=== PATIENT | female | born 1940 | race Caucasian/White ===

== ENCOUNTER 2016-09-06 23:22 | Emergency (ER) | payer MEDICARE, BC ==
[2016-09-07] MEDS: HYDROMORPHONE HCL 1 MG/ML CPJ IM ONE (01:18)
[2016-09-07] MEDS: PROMETHAZINE HCL 25 MG/ML VIAL IM ONE (01:18)
[2016-09-07] MEDS: KETOROLAC 30 MG/ML VIAL IM ONE (01:18)
--- NOTE | 2016-09-07 01:56 | Emergency Department Record ---
History of Present Illness - General Chief complaint: Lower Extremity Pain Stated complaint: RESTLESS LEGS Time Seen by Provider: 09/07/16 00:29 Source: Patient Mode of Arrival: Ambulatory Limitations: No limitations - History of Present Illness Initial comments: pt fell on [place] on her buttocks and has continued pain in her back, buttocks and going down her legs. she has no numbess, no bowel or bladder problems. pt is on chemo for colonca w mets. her oncologist told her to get xrays. the pain was keeping her awake tonight Onset/Timin -: Days(s) Location: Bilateral, Lower Leg Severity scale (1-10): 8 Quality: Aching Consistency: Constant Improves with: Immobilization Worsens with: Exertion, Palpation Associated Symptoms: Denies other symptoms - Related Data Home Medications Medication Instructions Recorded Confirmed Last Taken Cyclobenzaprine HCl [Flexeril] 10 mg PO Q6H PRN 02/22/14 09/07/16 09/06/16 Ipratropium/Albuterol [Duoneb] 3 ml IH Q8H PRN 02/22/14 09/07/16 09/06/16 Morphine Sulfate [Morphine Sulfate 30 mg PO BID PRN 02/22/14 09/07/16 09/06/16 ER] Omeprazole [Prilosec] 20 mg PO DAILY 02/22/14 09/07/16 09/07/16 Paroxetine HCl [Paxil] 40 mg PO QHS 02/22/14 09/07/16 09/06/16 Promethazine HCl [Phenergan] 25 mg PO Q6H PRN 02/22/14 09/07/16 09/06/16 Morphine Sulfate 15 mg PO Q4H PRN 04/07/15 09/07/16 09/07/16 Multivitamin/Iron/Folic Acid 1 tab PO DAILY 06/06/15 09/07/16 09/06/16 [Centrum] Ketorolac Tromethamine 10 mg PO BID PRN 11/12/15 09/07/16 09/06/16 Lorazepam [Ativan] 0.5 mg PO Q8H 11/21/15 09/07/16 09/07/16 Ondansetron [Zofran Odt] 4 mg PO Q8H 03/31/16 09/07/16 09/06/16 Previous Rx's Medication Instructions Recorded Ketorolac Tromethamine 10 mg PO QID #20 tablet 03/31/16 Ketorolac Tromethamine 10 mg PO QID #20 tablet 03/31/16 Triamcinolone Acet Cream [Kenalog 1 apply TP BID #30 tube 07/06/16 Cream] Allergies Allergy/AdvReac Type Severity Reaction Status Date / Time aspirin Allergy Unknown HYPERSENSIT Verified 07/06/16 15:51 IVITY codeine Allergy Unknown NAUSEA AND Verified 07/06/16 15:51 VOMITING doxycycline [DOXYCYCLINE] Allergy Unknown DIARRHEA Verified 07/06/16 15:51 iodine [IODINE] Allergy Unknown SKIN Verified 07/06/16 15:51 IRRITATION [id number] Reductase Allergy Unknown ABDOMINAL Verified 07/06/16 15:51 Inhibitor PAIN Sulfa (Sulfonamide Allergy Unknown DIARRHEA Verified 07/06/16 15:51 Antibiotics) acetaminophen [From Percocet] Allergy DIARRHEA Verified 07/06/16 15:51 azithromycin [From Zithromax] Allergy DIARRHEA Verified 07/06/16 15:51 bupropion HCl Allergy PT UNSURE Verified 07/06/16 15:51 [From Wellbutrin] OF REACTION ciprofloxacin [From Cipro] Allergy RESPIRATORY Verified 07/06/16 15:51 IRRITATION ciprofloxacin HCl Allergy RESPIRATORY Verified 07/06/16 15:51 [From Cipro] IRRITATION dicyclomine HCl [From Bentyl] Allergy ALTERED Verified 07/06/16 15:51 MENTAL STATUS diphenhydramine HCl Allergy ALTERED Verified 07/06/16 15:51 [From Benadryl] MENTAL STATUS doxepin Allergy HYPERSENSIT Verified 07/06/16 15:51 IVITY erythromycin base Allergy DIARRHEA Verified 07/06/16 15:51 [Erythromycin Base] fluoxetine HCl [From Prozac] Allergy SWELLING Verified 07/06/16 15:51 (GENERAL) hydroxyzine HCl [From Atarax] Allergy HYPERSENSIT Verified 07/06/16 15:51 IVITY Iodinated Contrast Media - Allergy PT UNSURE Verified 07/06/16 15:51 Oral and OF REACTION [Iodinated Contrast Media - IV Dye] levofloxacin [From Levaquin] Allergy PT UNSURE Verified 07/06/16 15:51 OF REACTION metoclopramide HCl Allergy ALTERED Verified 07/06/16 15:51 [From Reglan] MENTAL STATUS moxifloxacin HCl Allergy RESPIRATORY Verified 07/06/16 15:51 [From Avelox] IRRITATION naproxen Allergy HYPERSENSIT Verified 07/06/16 15:51 IVITY oxycodone HCl [From Percocet] Allergy DIARRHEA Verified 07/06/16 15:51 prochlorperazine edisylate Allergy ALTERED Verified 07/06/16 15:51 [From Compazine] MENTAL STATUS prochlorperazine maleate Allergy ALTERED Verified 07/06/16 15:51 [From Compazine] MENTAL STATUS propoxyphene HCl Allergy DIARRHEA Verified 07/06/16 15:51 [From Darvon] tizanidine Allergy HYPERSENSIT Verified 07/06/16 15:51 IVITY tizanidine HCl Allergy HYPERSENSIT Verified 07/06/16 15:51 [From Zanaflex] IVITY theophylline AdvReac Intermediate RASH Verified 07/06/16 15:51 sulfamethoxazole AdvReac NAUSEA AND Verified 07/06/16 15:51 [From Bactrim] VOMITING trimethoprim [From Bactrim] AdvReac NAUSEA AND Verified 07/06/16 15:51 VOMITING Travel Screening - Travel/Exposure Within Last 30 Days Have you traveled within the last 30 days?: No - Travel/Exposure Within Last Year Have you traveled outside the [place] in the last year?: No - Additonal Travel Details Have you been exposed to anyone with a communicable illness?: No - Travel Symptoms Symptom Screening: None Review of Systems Reviewed: No additional complaints except as noted below Constitutional: Reports: As per HPI. Denies: Chills, Fever, Malaise, Night sweats, Weakness, Weight change Eyes: Reports: As per HPI. Denies: Eye discharge, Eye pain, Photophobia, Vision change ENT: Reports: As per HPI. Denies: Congestion, Dental pain, Ear pain, Epistaxis , Hearing loss, Throat pain Respiratory: Reports: As per HPI. Denies: Cough, Dyspnea, Hemoptysis, Stridor, Wheezes Cardiovascular: Reports: As per HPI. Denies: Arrhythmia, Chest pain, Dyspnea on exertion, Edema, Murmurs, Orthopnea, Palpitations, Paroxysmal nocturnal dyspnea, Rheumatic Fever, Syncope Endocrine: Reports: As per HPI. Denies: Fatigue, Heat or cold intolerance, Polydipsia, Polyuria Gastrointestinal: Reports: As per HPI. Denies: Abdominal pain, Constipation, Diarrhea, Hematemesis, Hematochezia, Melena, Nausea, Vomiting Genitourinary: Reports: As per HPI. Denies: Abnormal menses, Discharge, Dyspareunia, Dysuria, Frequency, Hematuria, Incontinence, Retention, Urgency Musculoskeletal: Reports: As per HPI. Denies: Arthralgia, Back pain, Gout, Joint swelling, Myalgia, Neck pain Skin: Reports: As per HPI. Denies: Bruising, Change in color, Change in hair/ nails, Lesions, Pruritus, Rash Neurological: Reports: As per HPI. Denies: Abnormal gait, Confusion, Headache, Numbness, Paresthesias, Seizure, Tingling, Tremors, Vertigo, Weakness Psychiatric: Reports: As per HPI. Denies: Anxiety, Auditory hallucinations, Depression, Homicidal thoughts, Suicidal thoughts, Visual hallucinations Hematological/Lymphatic: Reports: As per HPI. Denies: Anemia, Blood Clots, Easy bleeding, Easy bruising, Swollen glands Past Medical History - SOCIAL HISTORY Smoking Status: Former smoker Alcohol Use: None Drug Use: None - RESPIRATORY Hx Respiratory Disorders: Yes Hx Asthma: Yes Hx COPD: Yes Hx Dyspnea: Yes Hx Pneumonia: Yes (1989) - CARDIOVASCULAR Hx Cardio Disorders: Yes Hx Hypertension: Yes Comment:: Enlarged heart - NEURO Hx Neuro Disorders: No - GI Hx GI Disorders: Yes Hx Celiac Disease: Yes Hx Reflux: Yes Hx Irritable Bowel: Yes Hx Ulcer: Yes - Hx Genitourinary Disorders: No - ENDOCRINE Hx Endocrine Disorders: No - MUSCULOSKELETAL Hx Musculoskeletal Disorders: Yes Hx Arthritis: Yes (OSTEOARTHRITIS) - PSYCH Hx Psych Problems: Yes Hx Anxiety: Yes Hx Depression: Yes - HEMATOLOGY/ONCOLOGY Hx Hematology/Oncology Disorders: Yes Hx Cancer: Yes (appendix, colon, lung, lymph nodes) Hx Chemotherapy: No Hx Radiation Therapy: No Family Medical History Any Significant Family History?: No Hx Cancer: Mother *Cancer Comment: LUNG/BONE Physical Exam - General General Appearance: Alert, Oriented x3, Cooperative, Mild distress - Head Head exam: Normal inspection - Eye Eye exam: Normal appearance, PERRL, EOMI Pupils: Normal accommodation - ENT ENT exam: Normal exam, Mucous membranes moist, Normal external ear exam, Normal orophraynx Ear exam: Normal external inspection. negative: External canal tenderness Nasal Exam: Normal inspection. negative: Discharge, Sinus tenderness Mouth exam: Normal external inspection, Tongue normal Teeth exam: Normal inspection. negative: Dental caries Throat exam: Normal inspection. negative: Tonsillar erythema, Tonsillar exudate - Neck Neck exam: Normal inspection, Full ROM. negative: Tenderness - Respiratory Respiratory exam: Normal lung sounds bilaterally. negative: Respiratory distress - Cardiovascular Cardiovascular Exam: Regular rate, Normal rhythm, Normal heart sounds - GI/Abdominal GI/Abdominal exam: Soft, Normal bowel sounds. negative: Tenderness - Rectal Rectal exam: Deferred - exam: Deferred - Extremities Extremities exam: Normal inspection, Full ROM, Normal capillary refill. negative: Tenderness - Back Back exam: Reports: Muscle spasm, Tenderness. Denies: Full ROM, Rash noted - Neurological Neurological exam: Alert, CN II-XII intact, Normal gait, Oriented X3 - Psychiatric Psychiatric exam: Normal affect, Normal mood - Skin Skin exam: Dry, Intact, Normal color, Warm Course Vital Signs 09/06/16 23:35 Temperature 97.4 F L Pulse Rate [ 115 H Pulse Ox Probe] Respiratory 16 Rate Blood Pressure 160/81 [Left Arm] Pulse Ox 93 L - Reevaluation(s) Reevaluation #1: 09/07/16 01:51 pt feels much better Disposition Disposition: Discharge Clinical Impression: Radiculopathy Qualifiers: Spinal region: lumbar Qualified Code(s): M54.16 - Radiculopathy, lumbar region Disposition: Home, Self-Care Condition: (1) Good Instructions: Lumbar Radiculopathy (ED) Additional Instructions: follow up with family doctor. return sooner if worse Forms: Patient Portal Access
--- NOTE | 2016-09-11 09:12 | RADIOLOGY REPORT ---
EXAM: AP PELVIS HISTORY: PAIN. TECHNIQUE: AP view of the pelvis was obtained. Comparison: None. FINDINGS: Osteopenia. Negative for an acute fracture or dislocation. Degenerative changes of the lower lumbar spine and hips bilaterally. The soft tissues are unremarkable. IMPRESSION: OSTEOPENIA WITH DEGENERATIVE CHANGE. JOB NUMBER: [id number] MTDD
--- NOTE | 2016-09-11 09:15 | RADIOLOGY REPORT ---
EXAM: LUMBAR SPINE, TWO VIEWS HISTORY: BACK PAIN. TECHNIQUE: Frontal and lateral views of the lumbar spine were obtained. Comparison: None. Encounter: Initial. FINDINGS: There are diminutive twelve ribs. There are five non-rib bearing lumbar type vertebral bodies. 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 No discreet pars defects. Anterolisthesis of L4 on L5 likely secondary to facet arthropathy. Diffuse degenerative changes most pronounced at L3-L4, L4-L5, and L5-S1. IMPRESSION: NEGATIVE FOR ACUTE ABNORMALITY. OSTEOPENIA WITH DEGENERATIVE CHANGE, ABOVE. JOB NUMBER: [id number] MTDD
== END 2016-09-07 02:05 | disposition home or self-care (01) ==
LOC: ER 23:22
DX: M54.16 Radiculopathy, lumbar region (principal); M25.552 Pain in left hip; M25.551 Pain in right hip; I10 Essential (primary) hypertension; J44.9 Chronic obstructive pulmonary disease, unspecified; Z87.891 Personal history of nicotine dependence
CPT/HCPCS: 99283; 96372; 99284; 72100; 72170; J1885; J1170; J2550

== ENCOUNTER 2016-09-20 03:58 | Inpatient (IN) | payer MEDICARE, BC ==
[2016-09-20] MEDS ORDERED: ONDANSETRON HCL IV 4 MG/2 ML VIAL IV ONE (04:16)
[2016-09-20] MEDS ORDERED: 0.9 % SODIUM CHLORIDE 1000ML 1,000 ML IV ONE ×2 (04:16→07:19)
--- NOTE | 2016-09-20 04:24 | Emergency Department Record ---
History of Present Illness - General Chief complaint: Nausea, Vomiting, Diarrhea Stated complaint: VOMITING Time Seen by Provider: 09/20/16 04:13 Source: Patient Mode of Arrival: Stretcher Limitations: No limitations - History of Present Illness Initial comments: 76 yo female presents with nausea and vomiting the last 2 days. She has a history of adenocarcinoma of the appendix with metastasis. She is treated by Dr Hui with chemotherapy. Her last treatment was Friday. She denies any diarrhea. She has nausea and cramps when she tries to eat. She tried her Zofran ODT at home without any relief. Her PCP is Dr Hernandez. complaint: Nausea, Vomiting Onset/Timin -: Days(s) Description of Vomiting: Watery Associated Abdominal Pain: Yes (cramps) Location: Diffuse Radiation: Epigastric, LUQ, RUQ Severity: Moderate Severity scale (1-10): 9 Quality: Aching Improves with: None Worsens with: None Associated Symptoms: Malaise - Related Data Home Medications Medication Instructions Recorded Confirmed Last Taken Cyclobenzaprine HCl [Flexeril] 10 mg PO Q6H PRN 02/22/14 09/20/16 09/19/16 Ipratropium/Albuterol [Duoneb] 3 ml IH Q8H PRN 02/22/14 09/20/16 09/19/16 Morphine Sulfate [Morphine Sulfate 30 mg PO BID PRN 02/22/14 09/20/16 09/19/16 ER] Omeprazole [Prilosec] 20 mg PO DAILY 02/22/14 09/20/16 09/19/16 Paroxetine HCl [Paxil] 40 mg PO QHS 02/22/14 09/20/16 09/19/16 Promethazine HCl [Phenergan] 25 mg PO Q6H PRN 02/22/14 09/20/16 09/19/16 Morphine Sulfate 15 mg PO Q4H PRN 04/07/15 09/20/16 09/19/16 Multivitamin/Iron/Folic Acid 1 tab PO DAILY 06/06/15 09/20/16 09/19/16 [Centrum] Ketorolac Tromethamine 10 mg PO BID PRN 11/12/15 09/20/16 09/19/16 Lorazepam [Ativan] 0.5 mg PO Q8H 11/21/15 09/20/16 09/19/16 Ondansetron [Zofran Odt] 4 mg PO Q8H 03/31/16 09/20/16 09/19/16 Previous Rx's Medication Instructions Recorded Triamcinolone Acet Cream [Kenalog 1 apply TP BID #30 tube 07/06/16 Cream] Allergies Allergy/AdvReac Type Severity Reaction Status Date / Time aspirin Allergy Unknown HYPERSENSIT Verified 07/06/16 15:51 IVITY codeine Allergy Unknown NAUSEA AND Verified 07/06/16 15:51 VOMITING doxycycline [DOXYCYCLINE] Allergy Unknown DIARRHEA Verified 07/06/16 15:51 iodine [IODINE] Allergy Unknown SKIN Verified 07/06/16 15:51 IRRITATION [id number]-Igt Reductase Allergy Unknown ABDOMINAL Verified 07/06/16 15:51 Inhibitor PAIN Sulfa (Sulfonamide Allergy Unknown DIARRHEA Verified 07/06/16 15:51 Antibiotics) acetaminophen [From Percocet] Allergy DIARRHEA Verified 07/06/16 15:51 azithromycin [From Zithromax] Allergy DIARRHEA Verified 07/06/16 15:51 bupropion HCl Allergy PT UNSURE Verified 07/06/16 15:51 [From Wellbutrin] OF REACTION ciprofloxacin [From Cipro] Allergy RESPIRATORY Verified 07/06/16 15:51 IRRITATION ciprofloxacin HCl Allergy RESPIRATORY Verified 07/06/16 15:51 [From Cipro] IRRITATION dicyclomine HCl [From Bentyl] Allergy ALTERED Verified 07/06/16 15:51 MENTAL STATUS diphenhydramine HCl Allergy ALTERED Verified 07/06/16 15:51 [From Benadryl] MENTAL STATUS doxepin Allergy HYPERSENSIT Verified 07/06/16 15:51 IVITY erythromycin base Allergy DIARRHEA Verified 07/06/16 15:51 [Erythromycin Base] fluoxetine HCl [From Prozac] Allergy SWELLING Verified 07/06/16 15:51 (GENERAL) hydroxyzine HCl [From Atarax] Allergy HYPERSENSIT Verified 07/06/16 15:51 IVITY Iodinated Contrast Media - Allergy PT UNSURE Verified 07/06/16 15:51 Oral and OF REACTION [Iodinated Contrast Media - IV Dye] levofloxacin [From Levaquin] Allergy PT UNSURE Verified 07/06/16 15:51 OF REACTION metoclopramide HCl Allergy ALTERED Verified 07/06/16 15:51 [From Reglan] MENTAL STATUS moxifloxacin HCl Allergy RESPIRATORY Verified 07/06/16 15:51 [From Avelox] IRRITATION naproxen Allergy HYPERSENSIT Verified 07/06/16 15:51 IVITY oxycodone HCl [From Percocet] Allergy DIARRHEA Verified 07/06/16 15:51 prochlorperazine edisylate Allergy ALTERED Verified 07/06/16 15:51 [From Compazine] MENTAL STATUS prochlorperazine maleate Allergy ALTERED Verified 07/06/16 15:51 [From Compazine] MENTAL STATUS propoxyphene HCl Allergy DIARRHEA Verified 07/06/16 15:51 [From Darvon] tizanidine Allergy HYPERSENSIT Verified 07/06/16 15:51 IVITY tizanidine HCl Allergy HYPERSENSIT Verified 07/06/16 15:51 [From Zanaflex] IVITY theophylline AdvReac Intermediate RASH Verified 07/06/16 15:51 sulfamethoxazole AdvReac NAUSEA AND Verified 07/06/16 15:51 [From Bactrim] VOMITING trimethoprim [From Bactrim] AdvReac NAUSEA AND Verified 07/06/16 15:51 VOMITING Travel Screening - Travel/Exposure Within Last 30 Days Have you traveled within the last 30 days?: No - Travel/Exposure Within Last Year Have you traveled outside the [place] in the last year?: No - Additonal Travel Details Have you been exposed to anyone with a communicable illness?: No - Travel Symptoms Symptom Screening: None Review of Systems Constitutional: Reports: Malaise, Weakness. Denies: Chills, Fever Eyes: Denies: Eye discharge, Eye pain, Photophobia, Vision change ENT: Denies: Congestion, Throat pain Respiratory: Denies: Cough, Dyspnea, Hemoptysis, Stridor, Wheezes Cardiovascular: Denies: Chest pain, Palpitations, Syncope Endocrine: Reports: Fatigue Gastrointestinal: Reports: As per HPI, Abdominal pain, Nausea, Vomiting. Denies : Constipation, Diarrhea, Hematemesis, Hematochezia Genitourinary: Denies: Discharge, Dysuria, Urgency Musculoskeletal: Denies: Arthralgia, Back pain, Joint swelling, Myalgia Skin: Denies: Bruising, Change in color, Rash Neurological: Denies: Confusion, Headache Psychiatric: Denies: Anxiety Hematological/Lymphatic: Denies: Blood Clots, Easy bleeding, Easy bruising, Swollen glands Past Medical History - SOCIAL HISTORY Smoking Status: Former smoker Alcohol Use: None Drug Use: None - RESPIRATORY Hx Respiratory Disorders: Yes Hx Asthma: Yes Hx COPD: Yes Hx Dyspnea: Yes Hx Pneumonia: Yes (1989) - CARDIOVASCULAR Hx Cardio Disorders: Yes Hx Hypertension: Yes Comment:: Enlarged heart - NEURO Hx Neuro Disorders: No - GI Hx GI Disorders: Yes Hx Celiac Disease: Yes Hx Reflux: Yes Hx Irritable Bowel: Yes Hx Ulcer: Yes - Hx Genitourinary Disorders: No - ENDOCRINE Hx Endocrine Disorders: No - MUSCULOSKELETAL Hx Musculoskeletal Disorders: Yes Hx Arthritis: Yes (OSTEOARTHRITIS) - PSYCH Hx Psych Problems: Yes Hx Anxiety: Yes Hx Depression: Yes - HEMATOLOGY/ONCOLOGY Hx Hematology/Oncology Disorders: Yes Hx Cancer: Yes (appendix, colon, lung, lymph nodes) Hx Chemotherapy: No Hx Radiation Therapy: No Family Medical History Any Significant Family History?: No Hx Cancer: Mother *Cancer Comment: LUNG/BONE Physical Exam - General General Appearance: Alert, Oriented x3, Cooperative, No acute distress Limitations: No limitations - Head Head exam: Normal inspection - Eye Eye exam: Normal appearance, PERRL. negative: Conjunctival injection, Periorbital swelling - ENT ENT exam: Normal exam Ear exam: Normal external inspection Nasal Exam: Normal inspection Mouth exam: Normal external inspection Teeth exam: Normal inspection Throat exam: Normal inspection - Neck Neck exam: Normal inspection, Full ROM. negative: Tenderness - Respiratory Respiratory exam: Normal lung sounds bilaterally. negative: Respiratory distress - Cardiovascular Cardiovascular Exam: Normal rhythm, Normal heart sounds, Tachycardia Peripheral Pulses: 2+: Radial (R), Radial (L) - GI/Abdominal GI/Abdominal exam: Soft. negative: Distended, Guarding, Rebound, Rigid, Tenderness - Rectal Rectal exam: Deferred - exam: Deferred - Extremities Extremities exam: Normal inspection, Full ROM, Normal capillary refill. negative: Tenderness - Back Back exam: Reports: Normal inspection, Full ROM. Denies: Muscle spasm, Rash noted, Tenderness - Neurological Neurological exam: Alert, Normal gait, Oriented X3 - Psychiatric Psychiatric exam: Normal affect, Normal mood - Skin Skin exam: Dry, Intact, Normal color, Warm Course Vital Signs 09/20/16 03:59 Temperature 98.3 F Pulse Rate 114 H Respiratory 16 Rate Blood Pressure 191/107 Pulse Ox 96 - Reevaluation(s) Reevaluation #1: EKG rate 103, sinus tachycardia, intervals normal, axis normal, ST no acute changes from prior January 2010. 09/20/16 04:26 Reevaluation #2: The labs were reviewed Minor changes of the LFT's otherwise no acute changes of the CBC or CMP. 09/20/16 05:09 Reevaluation #3: On recheck the patient still has nausea and restless legs Additional medications provided. 09/20/16 05:33 Reevaluation #4: The patient continues to have little relief of her symptoms. She lives alone with little support at this time She will be admitted for intractable nausea after her chemo Her abdomen remains soft at this time. 09/20/16 06:17 Medical Decision Making - Lab Data Result diagrams: 09/20/16 04:30 09/20/16 04:30 Disposition Disposition: Admit Clinical Impression: Nausea, Dehydration Disposition: Still a Patient at [facility] Decision to Admit: Admit from ER Decision to Admit Date: 09/20/16 Decision to Admit Time: 06:19 Condition: (2) Stable Forms: Patient Portal Access Time of Disposition: 06:19
[2016-09-20 04:41] LABS: HEMATOCRIT 37.6 % (35.0-47.0); HEMOGLOBIN 12.5 gm/dl (11.6-16.0); MEAN CELL VOLUME 83.7 fl (81-97); MEAN CORPUSCULAR HEMOGLOBIN 27.8 pg (27-33); MEAN CORPUSCULAR HGB CONC 33.2 g/dl (32-36); MEAN PLATELET VOLUME 9.6 fl (7.4-10.4); PLATELET COUNT 235 K/uL (130-400); RED BLOOD COUNT 4.49 M/uL (3.80-5.40); RED CELL DISTRIBUTION WIDTH 15.2 % (11.5-14.5); WHITE BLOOD COUNT W/O DIFF 4.6 K/uL (4.2-12.2)
[2016-09-20 04:49] LABS: ALB/GLOB RATIO 1.6 (1.1-1.8); ALBUMIN 3.8 gm/dL (3.5-5.0); ALKALINE PHOSPHATASE 130 U/L (38-126); ALT/SGPT 62 U/L (9-52); AST/SGOT 49 U/L (14-36); BILIRUBIN,TOTAL 0.87 mg/dL (0.2-1.3); BLOOD UREA NITROGEN 12 mg/dL (7-17); CREATININE 0.6 mg/dL (0.52-1.04); EST GLOMERULAR FILTRATION RATE > 60 ml/min; GLUCOSE,RANDOM 148 mg/dL (70-110); TOTAL PROTEIN 6.2 gm/dL (6.3-8.2)
[2016-09-20] MEDS ORDERED: MORPHINE SULFATE 5 MG/ML PFS IVP ONE (04:53)
[2016-09-20 04:57] LABS: LIPASE < 10 U/L (23-300)
[2016-09-20] MEDS ORDERED: DIPHENHYDRAMINE HCL IV 50 MG/ML VIAL IVP ONE (05:04)
[2016-09-20] MEDS ORDERED: HYDROMORPHONE HCL 1 MG/ML CPJ IVP ONE (05:32)
[2016-09-20] MEDS ORDERED: PROMETHAZINE HCL 25 MG/ML VIAL IVP ONE (05:32)
[2016-09-20] MEDS ORDERED: KETOROLAC 30 MG/ML VIAL IVP ONE (05:32)
[2016-09-20 06:34] LABS: URINE APPEARANCE CLEAR; URINE BILIRUBIN NEGATIVE (NEGATIVE); URINE BLOOD NEGATIVE (NEGATIVE); URINE COLOR YELLOW; URINE KETONE 15 mg/dL (NEGATIVE); URINE LEUKOCYTE ESTERASE NEGATIVE (NEGATIVE); URINE NITRITE NEGATIVE (NEGATIVE); URINE PROTEIN NEGATIVE (NEGATIVE); URINE UROBILINOGEN 0.2 E.U./dL (0.20 - 1.00)
[2016-09-20] MEDS ORDERED: ONDANSETRON HCL IV 4 MG/2 ML VIAL IVP PRN (07:19)
[2016-09-20] MEDS ORDERED: 0.9 % SODIUM CHLORIDE 1000ML 1,000 ML IV PRN (07:19)
[2016-09-20] MEDS ORDERED: PROMETHAZINE HCL 25 MG/ML VIAL IVP PRN (07:19)
[2016-09-20] MEDS ORDERED: LORAZEPAM 0.5 MG PO SCH (07:19)
[2016-09-20] MEDS ORDERED: KETOROLAC TROMETHAMINE 10 MG PO PRN (07:19)
[2016-09-20] MEDS ORDERED: MORPHINE SULFATE 15 MG TABLET PO PRN (07:19)
[2016-09-20] MEDS ORDERED: MORPHINE SULFATE 30 MG PO PRN (07:19)
[2016-09-20] MEDS ORDERED: CYCLOBENZAPRINE 10MG TABLET PO PRN (07:19)
[2016-09-20] MEDS ORDERED: HYDROMORPHONE HCL 1 MG/ML CPJ IVP PRN (09:05)
[2016-09-20] MEDS ORDERED: TRIAMCINOLONE ACET 0.1% CREAM 15G TUBE TOP SCH (10:00)
--- NOTE | 2016-09-20 10:08 | History and Physical Report ---
CHIEF COMPLAINT: Nausea post chemotherapy. HISTORY OF PRESENT ILLNESS: This 76-year-old female presented with nausea and vomiting for the last two days; mostly nausea. 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 She is being treated by Dr. Hui with oncology and had chemotherapy with her last treatment having been two days ago. She has loose stools, and the nausea was very bad. She could not eat or drink anything. She came into the emergency room. She tried Zofran at home o.d.t. without relief. She came to the emergency room for evaluation. She was evaluated by Dr. Rob. She was given intravenous fluids approximately one liter, 0.5 mg of Dilaudid intravenous, 4.0 mg of intravenous morphine, Phenergan 12.5 mg intravenous, Toradol 15 mg intravenous, and Zofran 4.0 mg intravenous. She is still very nauseated and at this point she felt she could not go home. She was put in the hospital for observation for intravenous fluids and further nausea and vomiting control. PAST MEDICAL HISTORY: She has chronic obstructive pulmonary disease, hypertension, cardiomegaly, celiac disease, sensitive to gluten, gastroesophageal reflux disease, irritable bowel, a history of peptic ulcer disease, osteoarthritis, anxiety, and depression. 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 This was diagnosed in January of 2016. She has received chemotherapy but no radiation therapy. PAST SURGICAL HISTORY: Left knee replacement, cholecystectomy, hysterectomy, dilatation and curettage times three, hemorrhoid and fissure repair. MEDICATIONS ON ADMISSION: Kenalog cream b.i.d., Phenergan 25 mg q. six hours p.r.n., Paxil 40 mg q. daily, Zofran 4.0 mg every eight hours p.r.n. o.d.t., omeprazole 20 mg q. daily, Centrum one tablet daily, morphine sulfate extended release 30 mg b.i.d. She also uses morphine sulfate immediate release 15 mg every four hours p.r.n. Ativan 0.5 mg q. eight hours, Toradol 10 mg b.i.d. p.r.n., DuoNeb treatments q. eight hours p.r.n., Flexeril 10 mg q. six hours p.r.n. ALLERGIES: She has multiple allergies which are documented in the medical chart. FAMILY/PSYCHOSOCIAL HISTORY: She is an ex-smoker; she stopped smoking in 1988. No alcohol or drug use. Her mother had lung and bone cancer. REVIEW OF SYSTEMS: HEENT: No upper respiratory infection symptoms, cough, cold, or congestion. Cardiovascular: No chest pain, palpitations, or arrhythmias. Respiratory: No cough, cold, or congestion. Gastrointestinal: See Chief Complaint. She has nausea, vomiting, and diarrhea. She says the loose stools have been present since she has had 20 cm of her colon and appendix taken out. The patient denies abdominal pain. Genitourinary: The patient denies dysuria, hematuria, frequency, or burning on urination. Musculoskeletal: She has arthritis in all of her joints. Neurologic: No cerebrovascular accident, paralysis, or paraesthesias. Endocrine: No diabetes or thyroid disease. PHYSICAL EXAMINATION: General: Height is 5 feet. Weight is 180 pounds. The patient is able to sit up on the bed without difficulties. Vital Signs: Temperature was 98.3. When the patient initially came in her pulse was 114. Blood pressure was 191/107. Respiratory rate was 16, pulse oximetry is 96% on room air. Her vitals when she went to the floor were: Pulse was 101, blood pressure was 170/64, respiratory rate was 18, pulse oximetry was 96% on room air. HEENT: Pupils are equal, round, and reactive to light and accommodation. Extraocular muscles are intact. Neck: The neck is supple. No jugular venous distension. No hepatojugular reflex. Cardiovascular: Regular rate and rhythm without murmurs, clicks, rubs, or gallops. Respiratory: Breath sounds are equal bilaterally. Clear; no wheezing, rhonchi , or rubs heard. Abdomen: Soft. No rebound, rigidity, guarding, or tenderness. Rectal Examination: Deferred. Breast and Gynecology Examination: Deferred. Extremities: No pedal edema. Full range of motion. Capillary refill is good. Neurological Examination: Alert. Cranial nerves II through XII are intact. Alert and oriented times three. Normal gait. Moving all four extremities appropriately. Psychiatric: Normal mood and affect. Skin Examination: Dry. No abnormalities noted. Normal color and warm. DIAGNOSTIC DATA: EKG showed normal sinus rhythm, tachycardia. Normal interval and axis and ST changes similar to January of 2010. LABORATORY DATA: White blood cell count was 4,600, hemoglobin was 12.5, segs were 86, bands were 0, lymphs were 9. Potassium was 3.7, BUN was 12, creatinine was 0.6. AST was 49. ALT was 62. Alkaline phosphatase was 130. Urinalysis was negative. Ketones were 15 mg per deciliter. ASSESSMENT: 1. Nausea. 2. Chemotherapy for adenocarcinoma of the appendix with metastasis. 3. Last treatment of chemotherapy two days ago and the nausea got very bad. 4. History of COPD. 5. History of hypertension. 6. History of celiac disease. 7. History of GERD. 8. History of irritable bowel syndrome. 9. History of peptic ulcer disease. 10. History of osteoarthritis. PLAN: Intravenous fluids, Phenergan, Zofran, and further evaluation. Naga Gutierrez D.O. Date Time JOB NUMBER: [id number] (Addendum - added Assessment) [facility]
[2016-09-20] MEDS: MULTIVITAMINS/MINERALS TABLET PO SCH ×2 (11:12→11:25)
[2016-09-20] MEDS ORDERED: PANTOPRAZOLE SODIUM 40 MG TABLET PO SCH (11:30)
--- NOTE | 2016-09-20 13:38 | Discharge Note ---
Discharge Note - Date Date of Discharge Note: 09/20/16 Disposition: Home, Self-Care Condition: (2) Stable Additional Instructions: follow up with Dr. naranjo on follow up with Dr. Hui on friday as scheduled Forms: Patient Portal Access
[2016-09-20] MEDS ORDERED: LORAZEPAM 0.5 MG TABLET PO SCH (14:00)
--- NOTE | 2016-09-20 15:26 | Discharge Summary ---
DATE OF DISCHARGE: 09/20/16 DISCHARGE DIAGNOSIS: 1. NAUSEA SECONDARY TO CHEMOTHERAPY. 2. ADENOCARCINOMA OF THE APPENDIX WITH METASTASIS TO THE LUNG AND LYMPH NODES. 3. ONGOING CHEMOTHERAPY WITH DR. AZEVEDO. 4. HISTORY OF COPD. 5. HISTORY OF HYPERTENSION. 6. HISTORY OF CELIAC DISEASE. 7. HISTORY OF GERD. 8. HISTORY OF IBS. 9. HISTORY OF PEPTIC ULCER DISEASE. 10. HISTORY OF OSTEOARTHRITIS. 11. SHE HAS CHRONIC RIGHT LOW BACK PAIN WITH RADICULOPATHY INTO THE RIGHT LEG. ATTENDING PHYSICIAN: NAGA TONY D.O. REASON FOR HOSPITALIZATION: NAUSEA POST CHEMOTHERAPY TWO DAYS AGO: This 76-year- old female presented to the Emergency Department with nausea and vomiting that started two days ago after her chemotherapy. She states she couldn't tolerate it. She was seen initially by Dr. Rob and given IV fluids and Phenergan, Zofran, and fluids. She was admitted to the hospital because of intractable nausea. THERAPY PROVIDED: The patient was given IV fluids and pain control and nausea medication. At 1:30, when I went in to see her, the nausea was gone, she was still having some chronic low back pain on the right side with radiculopathy into the right leg, which she has all the time and I felt it was safe to go home and follow-up as an outpatient. She has an appointment with Dr. Azevedo on Friday for Oncology and will make an appointment with Dr. Hernandez on Friday. HOSPITAL COURSE: Improved. CONDITION AT DISCHARGE: Improved. DISCHARGE INSTRUCTIONS: Follow-up with Dr. Hernandez on Friday and Dr. Azevedo on Friday. Continue her home medications. Naga Tony D.O. Date & Time JOB NUMBER: [id number] MTDD
[2016-09-20] MEDS ORDERED: PAROXETINE HCL 10 MG TABLET PO SCH (22:00)
== END 2016-09-20 15:50 | disposition home health service (06) ==
LOC: ER 03:58 → MEDSURG 07:16
PROVIDERS: ADMIT Emergency Medicine; ATTEND Emergency Medicine
DX: R11.2 Nausea with vomiting, unspecified (principal); C18.1 Malignant neoplasm of appendix; C78.00 Secondary malignant neoplasm of unspecified lung; I10 Essential (primary) hypertension; J44.9 Chronic obstructive pulmonary disease, unspecified
CPT/HCPCS: 99285 ×2; 96374; 96375; 83690; 80053; 81003; 85027; 93005; 93010; J1885; J2405; J1170; J2270; 99236; J2550; J7030

== ENCOUNTER 2016-09-22 09:15 | Inpatient (IN) | payer MEDICARE, BC ==
[2016-09-22] MEDS ORDERED: PROMETHAZINE HCL 25 MG/ML VIAL IV ONE (09:50)
[2016-09-22] MEDS ORDERED: 0.9 % SODIUM CHLORIDE 1,000 ML BAG IV ONE (09:50)
--- NOTE | 2016-09-22 09:50 | Emergency Department Record ---
History of Present Illness - General Chief complaint: Vomiting Stated complaint: ABD PAIN/ NAUSEA-VOMITING Time Seen by Provider: 09/22/16 09:49 Mode of Arrival: EMS - History of Present Illness Initial comments: nausea is better now but she is having lots of diarrhea and she called oncology and they told her to come to the ED for evaluation and possible admission. Onset/Timin -: Days(s) Associated Abdominal Pain: Yes Location: Diffuse Radiation: None Severity: Moderate Severity scale (1-10): 8 Quality: Cramping Consistency: Constant Improves with: None Worsens with: Eating Associated Symptoms: Loss of appetite, Other (diarrhea 10 times in the last 12 hours) - Related Data Home Medications Medication Instructions Recorded Confirmed Last Taken Cyclobenzaprine HCl [Flexeril] 10 mg PO Q6H PRN 02/22/14 09/22/16 09/19/16 Ipratropium/Albuterol [Duoneb] 3 ml IH Q8H PRN 02/22/14 09/22/16 09/19/16 Morphine Sulfate [Morphine Sulfate 30 mg PO BID PRN 02/22/14 09/22/16 09/19/16 ER] Omeprazole [Prilosec] 20 mg PO DAILY 02/22/14 09/22/16 09/19/16 Paroxetine HCl [Paxil] 40 mg PO QHS 02/22/14 09/22/16 09/19/16 Promethazine HCl [Phenergan] 25 mg PO Q6H PRN 02/22/14 09/22/16 09/19/16 Morphine Sulfate 15 mg PO Q4H PRN 04/07/15 09/22/16 09/19/16 Multivitamin/Iron/Folic Acid 1 tab PO DAILY 06/06/15 09/22/16 09/19/16 [Centrum] Ketorolac Tromethamine 10 mg PO BID PRN 11/12/15 09/22/16 09/19/16 Lorazepam [Ativan] 0.5 mg PO Q8H 11/21/15 09/22/16 09/19/16 Ondansetron [Zofran Odt] 4 mg PO Q8H 03/31/16 09/22/16 09/19/16 Previous Rx's Medication Instructions Recorded Triamcinolone Acet Cream [Kenalog 1 apply TP BID #30 tube 07/06/16 Cream] Allergies Allergy/AdvReac Type Severity Reaction Status Date / Time aspirin Allergy Unknown HYPERSENSIT Verified 07/06/16 15:51 IVITY codeine Allergy Unknown NAUSEA AND Verified 07/06/16 15:51 VOMITING doxycycline [DOXYCYCLINE] Allergy Unknown DIARRHEA Verified 07/06/16 15:51 iodine [IODINE] Allergy Unknown SKIN Verified 07/06/16 15:51 IRRITATION Fujcipn-Rgi-Qdb Reductase Allergy Unknown ABDOMINAL Verified 07/06/16 15:51 Inhibitor PAIN Sulfa (Sulfonamide Allergy Unknown DIARRHEA Verified 07/06/16 15:51 Antibiotics) acetaminophen [From Percocet] Allergy DIARRHEA Verified 07/06/16 15:51 azithromycin [From Zithromax] Allergy DIARRHEA Verified 07/06/16 15:51 bupropion HCl Allergy PT UNSURE Verified 07/06/16 15:51 [From Wellbutrin] OF REACTION ciprofloxacin [From Cipro] Allergy RESPIRATORY Verified 07/06/16 15:51 IRRITATION ciprofloxacin HCl Allergy RESPIRATORY Verified 07/06/16 15:51 [From Cipro] IRRITATION dicyclomine HCl [From Bentyl] Allergy ALTERED Verified 07/06/16 15:51 MENTAL STATUS diphenhydramine HCl Allergy ALTERED Verified 07/06/16 15:51 [From Benadryl] MENTAL STATUS doxepin Allergy HYPERSENSIT Verified 07/06/16 15:51 IVITY erythromycin base Allergy DIARRHEA Verified 07/06/16 15:51 [Erythromycin Base] fluoxetine HCl [From Prozac] Allergy SWELLING Verified 07/06/16 15:51 (GENERAL) hydroxyzine HCl [From Atarax] Allergy HYPERSENSIT Verified 07/06/16 15:51 IVITY Iodinated Contrast Media - Allergy PT UNSURE Verified 07/06/16 15:51 Oral and OF REACTION [Iodinated Contrast Media - IV Dye] levofloxacin [From Levaquin] Allergy PT UNSURE Verified 07/06/16 15:51 OF REACTION metoclopramide HCl Allergy ALTERED Verified 07/06/16 15:51 [From Reglan] MENTAL STATUS moxifloxacin HCl Allergy RESPIRATORY Verified 07/06/16 15:51 [From Avelox] IRRITATION naproxen Allergy HYPERSENSIT Verified 07/06/16 15:51 IVITY oxycodone HCl [From Percocet] Allergy DIARRHEA Verified 07/06/16 15:51 prochlorperazine edisylate Allergy ALTERED Verified 07/06/16 15:51 [From Compazine] MENTAL STATUS prochlorperazine maleate Allergy ALTERED Verified 07/06/16 15:51 [From Compazine] MENTAL STATUS propoxyphene HCl Allergy DIARRHEA Verified 07/06/16 15:51 [From Darvon] tizanidine Allergy HYPERSENSIT Verified 07/06/16 15:51 IVITY tizanidine HCl Allergy HYPERSENSIT Verified 07/06/16 15:51 [From Zanaflex] IVITY theophylline AdvReac Intermediate RASH Verified 07/06/16 15:51 sulfamethoxazole AdvReac NAUSEA AND Verified 07/06/16 15:51 [From Bactrim] VOMITING trimethoprim [From Bactrim] AdvReac NAUSEA AND Verified 07/06/16 15:51 VOMITING Travel Screening - Travel/Exposure Within Last 30 Days Have you traveled within the last 30 days?: No Review of Systems Reviewed: No additional complaints except as noted below Constitutional: Reports: As per HPI. Denies: Chills, Fever, Malaise, Night sweats, Weakness, Weight change Eyes: Reports: As per HPI. Denies: Eye discharge, Eye pain, Photophobia, Vision change ENT: Reports: As per HPI. Denies: Congestion, Dental pain, Ear pain, Epistaxis , Hearing loss, Throat pain Respiratory: Reports: As per HPI. Denies: Cough, Dyspnea, Hemoptysis, Stridor, Wheezes Cardiovascular: Reports: As per HPI. Denies: Arrhythmia, Chest pain, Dyspnea on exertion, Edema, Murmurs, Orthopnea, Palpitations, Paroxysmal nocturnal dyspnea, Rheumatic Fever, Syncope Endocrine: Reports: As per HPI. Denies: Fatigue, Heat or cold intolerance, Polydipsia, Polyuria Gastrointestinal: Reports: As per HPI, Diarrhea. Denies: Abdominal pain, Constipation, Hematemesis, Hematochezia, Melena, Nausea, Vomiting Genitourinary: Reports: As per HPI. Denies: Abnormal menses, Discharge, Dyspareunia, Dysuria, Frequency, Hematuria, Incontinence, Retention, Urgency Musculoskeletal: Reports: As per HPI. Denies: Arthralgia, Back pain, Gout, Joint swelling, Myalgia, Neck pain Skin: Reports: As per HPI. Denies: Bruising, Change in color, Change in hair/ nails, Lesions, Pruritus, Rash Neurological: Reports: As per HPI. Denies: Abnormal gait, Confusion, Headache, Numbness, Paresthesias, Seizure, Tingling, Tremors, Vertigo, Weakness Psychiatric: Reports: As per HPI. Denies: Anxiety, Auditory hallucinations, Depression, Homicidal thoughts, Suicidal thoughts, Visual hallucinations Hematological/Lymphatic: Reports: As per HPI. Denies: Anemia, Blood Clots, Easy bleeding, Easy bruising, Swollen glands Past Medical History - SOCIAL HISTORY Smoking Status: Former smoker Alcohol Use: None Drug Use: None - RESPIRATORY Hx Respiratory Disorders: Yes Hx Asthma: Yes Hx COPD: Yes Hx Dyspnea: Yes Hx Pneumonia: Yes (1989) - CARDIOVASCULAR Hx Cardio Disorders: Yes Hx Hypertension: Yes Comment:: Enlarged heart - NEURO Hx Neuro Disorders: Yes Hx Headaches: Yes - GI Hx GI Disorders: Yes Hx Celiac Disease: Yes Hx Reflux: Yes Hx Irritable Bowel: Yes Hx Ulcer: Yes - Hx Genitourinary Disorders: No - ENDOCRINE Hx Endocrine Disorders: No - MUSCULOSKELETAL Hx Musculoskeletal Disorders: Yes Hx Arthritis: Yes (OSTEOARTHRITIS) Comment:: RLS - PSYCH Hx Psych Problems: Yes Hx Anxiety: Yes Hx Depression: Yes - HEMATOLOGY/ONCOLOGY Hx Hematology/Oncology Disorders: Yes Hx Cancer: Yes (appendix, colon, lung, lymph nodes) Hx Chemotherapy: Yes Hx Radiation Therapy: Yes Comment:: last chemo was on Friday Family Medical History Any Significant Family History?: Yes Hx Cancer: Mother *Cancer Comment: LUNG/BONE Physical Exam - General General Appearance: Alert, Oriented x3, Cooperative, No acute distress - Head Head exam: Normal inspection - Eye Eye exam: Normal appearance, PERRL Pupils: Normal accommodation - ENT ENT exam: Normal exam, Mucous membranes moist, Normal external ear exam, Normal orophraynx, TM's normal bilaterally Ear exam: Normal external inspection. negative: External canal tenderness Nasal Exam: Normal inspection. negative: Discharge, Sinus tenderness Mouth exam: Normal external inspection, Tongue normal Teeth exam: Normal inspection. negative: Dental caries Throat exam: Normal inspection. negative: Tonsillar erythema, Tonsillar exudate - Neck Neck exam: Normal inspection, Full ROM. negative: Tenderness - Respiratory Respiratory exam: Normal lung sounds bilaterally. negative: Respiratory distress - Cardiovascular Cardiovascular Exam: Regular rate, Normal rhythm, Normal heart sounds - GI/Abdominal GI/Abdominal exam: Soft, Normal bowel sounds. negative: Tenderness - Rectal Rectal exam: Deferred - exam: Deferred - Extremities Extremities exam: Normal inspection, Full ROM, Normal capillary refill. negative: Tenderness - Back Back exam: Reports: Normal inspection, Full ROM. Denies: Muscle spasm, Rash noted, Tenderness - Neurological Neurological exam: Alert, Normal gait, Oriented X3, Reflexes normal - Psychiatric Psychiatric exam: Normal affect, Normal mood - Skin Skin exam: Dry, Intact, Normal color, Warm Course Vital Signs 09/22/16 09:20 Temperature 98.4 F Pulse Rate 103 H Respiratory 16 Rate Blood Pressure 173/80 Pulse Ox 98 Medical Decision Making - Lab Data Result diagrams: 09/22/16 09:40 09/22/16 09:40 Disposition Clinical Impression: History of cancer, Chemotherapy induced diarrhea, Dehydration symptoms, DNR ( do not resuscitate) Diarrhea Qualifiers: Diarrhea type: unspecified type Qualified Code(s): R19.7 - Diarrhea, unspecified Decision to Admit: Admit from ER Forms: Patient Portal Access
[2016-09-22 10:05] LABS: BASO % 0.5 % (0-6); EOS % 2.4 % (0-6); GRAN % 78.1 % (47-80); HEMATOCRIT 34.7 % (35.0-47.0); HEMOGLOBIN 11.6 gm/dl (11.6-16.0); LYMPH % 14.2 % (16-45); MEAN CELL VOLUME 84.2 fl (81-97); MEAN CORPUSCULAR HEMOGLOBIN 28.2 pg (27-33); MEAN CORPUSCULAR HGB CONC 33.4 g/dl (32-36); MEAN PLATELET VOLUME 9.6 fl (7.4-10.4); MONO % 4.8 % (0-9); PLATELET COUNT 230 K/uL (130-400); RED BLOOD COUNT 4.12 M/uL (3.80-5.40); RED CELL DISTRIBUTION WIDTH 15.5 % (11.5-14.5); WHITE BLOOD COUNT W/O DIFF 3.7 K/uL (4.2-12.2)
[2016-09-22 10:16] LABS: ALBUMIN 3.2 gm/dL (3.5-5.0); ALKALINE PHOSPHATASE 110 U/L (38-126); ALT/SGPT 87 U/L (9-52); ANION GAP 9.2 (7-16); AST/SGOT 62 U/L (14-36); BILIRUBIN,TOTAL 0.66 mg/dL (0.2-1.3); BLOOD UREA NITROGEN 11 mg/dL (7-17); CARBON DIOXIDE 25.8 mmol/L (22-30); CREATININE 0.6 mg/dL (0.52-1.04); EST GLOMERULAR FILTRATION RATE > 60 ml/min; GLUCOSE,RANDOM 141 mg/dL (70-110); TOTAL PROTEIN 5.4 gm/dL (6.3-8.2)
[2016-09-22] MEDS ORDERED: HYDROMORPHONE HCL 1 MG/ML CPJ IVP ONE (11:27)
[2016-09-22] MEDS ORDERED: 0.9 % SODIUM CHLORIDE 1000ML 1,000 ML IV PRN (14:22)
[2016-09-22] MEDS ORDERED: MORPHINE SULFATE 30 MG PO PRN (14:26)
[2016-09-22] MEDS ORDERED: IPRATROPIUM/ALBUTEROL (0.5MG/3MG) NEB INH PRN (14:26)
[2016-09-22] MEDS ORDERED: LORAZEPAM 0.5 MG PO SCH (14:30)
[2016-09-22] MEDS: ONDANSETRON 4 MG ODT TABLET PO SCH ×2 (15:37→22:17)
[2016-09-22] MEDS: PROMETHAZINE HCL 25 MG TABLET PO PRN (15:57)
[2016-09-22] MEDS: HYDROMORPHONE HCL 1 MG/ML CPJ IVP PRN ×2 (16:33→21:21)
[2016-09-22] MEDS: LORAZEPAM 0.5 MG TABLET PO PRN (20:40)
[2016-09-22] MEDS: MORPHINE SULFATE 15 MG TABLET PO PRN (20:43)
[2016-09-22] MEDS ORDERED: PAROXETINE HCL 40 MG PO SCH (22:00)
[2016-09-22] MEDS: PAROXETINE HCL 10 MG TABLET PO SCH (22:14)
[2016-09-23] MEDS: PROMETHAZINE HCL 25 MG TABLET PO PRN ×2 (02:15→22:33)
[2016-09-23] MEDS: HYDROMORPHONE HCL 1 MG/ML CPJ IVP PRN ×3 (02:15→18:48)
[2016-09-23] MEDS: MORPHINE SULFATE 30MG TABLET.ER PO PRN (05:40)
[2016-09-23 06:37] LABS: ANION GAP 10.9 (7-16); BLOOD UREA NITROGEN 8 mg/dL (7-17); CARBON DIOXIDE 23.1 mmol/L (22-30); CREATININE 0.6 mg/dL (0.52-1.04); EST GLOMERULAR FILTRATION RATE > 60 ml/min; GLUCOSE,RANDOM 179 mg/dL (70-110)
[2016-09-23] MEDS ORDERED: CYCLOBENZAPRINE 10MG TABLET PO PRN (06:59)
[2016-09-23] MEDS ORDERED: POTASSIUM CHLORIDE 20 MEQ TABLET PO ONE (07:51)
[2016-09-23] MEDS: PANTOPRAZOLE SODIUM 40 MG TABLET PO SCH (08:16)
[2016-09-23] MEDS: ONDANSETRON 4 MG ODT TABLET PO SCH ×3 (09:29→22:32)
[2016-09-23] MEDS: MULTIVITAMINS/MINERALS TABLET PO SCH (09:31)
--- NOTE | 2016-09-23 13:07 | History and Physical Report ---
DATE OF DICTATION: 09/23/2016 at 8:50 a.m. CHIEF COMPLAINT: Diarrhea, nausea. HISTORY OF PRESENT ILLNESS: This 76-year-old female returned to the emergency department stating that now she has excessive diarrhea; about 20 times in the last 24 hours. The nausea and vomiting have slowed down, and she just has excessive diarrhea. She called Oncology, and they told her to come into the emergency room for hydration and admission. She was evaluated in the emergency department by myself and was admitted for dehydration, chemotherapy-induced diarrhea, and a history of appendix adenocarcinoma with metastasis to the lung. PAST MEDICAL HISTORY: Chronic obstructive pulmonary disease, hypertension, cardiomegaly, celiac disease, sensitive to gluten, gastroesophageal reflux disease, irritable bowel, a history of peptic ulcer disease, osteoarthritis, anxiety, and depression. 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 She received chemotherapy about a week ago. PAST SURGICAL HISTORY: Left knee replacement, cholecystectomy, hysterectomy, dilatation and curettage times three, hemorrhoid and fissure repair. MEDICATIONS ON ADMISSION: Kenalog cream b.i.d., Phenergan 25 mg q. six hours p.r.n., Paxil 40 mg q. daily, Zofran 4.0 mg every eight hours p.r.n., omeprazole 20 mg daily, Centrum one tablet daily, morphine sulfate extended release 30 mg b.i.d., morphine sulfate immediate release 15 mg every four hours p.r.n., Ativan 0.5 mg every eight hours, Toradol 10 mg b.i.d. p.r.n., DuoNeb treatments every eight hours p.r.n., Flexeril 10 mg q. six hours p.r.n. ALLERGIES: She has multiple allergies which are documented in the chart. FAMILY/PSYCHOSOCIAL HISTORY: She is an ex-smoker; she stopped smoking in 1988. No alcohol or drug use. Her mother had lung and bone cancer. REVIEW OF SYSTEMS: HEENT: No upper respiratory infection symptoms, cough, cold, or congestion. Cardiovascular: No chest pain, palpitations, or arrhythmias. Respiratory: No cough, cold, or congestion. Gastrointestinal: See Chief Complaint. She has had diarrhea about 20 times in the last 24 hours. The nausea and vomiting have stopped. She says the loose stools have been present but have been much worse in the last 24 hours. Genitourinary: No dysuria, hematuria, frequency, or burning on urination. Musculoskeletal: She has arthritis in all of her joints. Neurologic: No cerebrovascular accident, paralysis, or paraesthesias. Endocrine: No diabetes or thyroid disease. PHYSICAL EXAMINATION: General: Height is 5 feet. Weight is 185 pounds. HEENT: Pupils are equal, round, and reactive to light and accommodation. Extraocular muscles are intact. The throat is clear. The nose is clear. The tympanic membranes are diane. Neck: The neck is supple. No jugular venous distension. No hepatojugular reflex. Cardiovascular: Regular rate and rhythm without murmurs, clicks, rubs, or gallops. Respiratory: Clear to auscultation. Breath sounds are equal bilaterally. Abdomen: Soft and tender to palpation. No rebound, rigidity, or guarding. Breasts, Gynecological, and Rectal Examinations: Deferred. Extremities: She has back pain on the right side in the sacroiliac joint area which radiates into her right leg. Capillary refill is good. Neurological Examination: Alert and oriented times three. Moving all four extremities. She was sitting at the bedside eating breakfast when I went in to evaluate her. Psychiatric: Normal mood and affect. Skin Examination: Dry. No abnormalities noted. Normal color. IMPRESSIONS: 1. Diarrhea secondary to chemotherapy. 2. Adenocarcinoma of the appendix with metastasis. 3. A history of chronic obstructive pulmonary disease. 4. A history of hypertension. 5. A history of celiac disease. 6. A history of gastroesophageal reflux disease. 7. A history of irritable bowel syndrome. 8. A history of peptic ulcer disease. 9. A history of osteoarthritis. PLAN: Intravenous fluids. Phenergan and Zofran as needed. Possibly will consider Imodium if the diarrhea does not slow down with hydration. Naga Gutierrez D.O. Date Time JOB NUMBER: [id number] MTDD
[2016-09-23] MEDS: LOPERAMIDE 2 MG CAPSULE PO PRN ×2 (18:49→22:35)
[2016-09-23] MEDS: LORAZEPAM 0.5 MG TABLET PO PRN (22:24)
[2016-09-23] MEDS: PSYLLIUM HUSK/ASPARTAME 3.4 GM POWD.PACK PO SCH (22:32)
[2016-09-23] MEDS: PAROXETINE HCL 10 MG TABLET PO SCH (22:34)
[2016-09-24] MEDS: HYDROMORPHONE HCL 1 MG/ML CPJ IVP PRN ×5 (02:05→20:12)
[2016-09-24 06:27] LABS: ANION GAP 11.1 (7-16); BLOOD UREA NITROGEN 6 mg/dL (7-17); CARBON DIOXIDE 21.9 mmol/L (22-30); CREATININE 0.5 mg/dL (0.52-1.04); EST GLOMERULAR FILTRATION RATE > 60 ml/min; GLUCOSE,RANDOM 143 mg/dL (70-110)
[2016-09-24] MEDS: PANTOPRAZOLE SODIUM 40 MG TABLET PO SCH (06:29)
[2016-09-24] MEDS: ONDANSETRON 4 MG ODT TABLET PO SCH (06:29)
[2016-09-24] MEDS: PROMETHAZINE HCL 25 MG TABLET PO PRN (06:30)
[2016-09-24] MEDS: PSYLLIUM HUSK/ASPARTAME 3.4 GM POWD.PACK PO SCH ×2 (10:11→22:49)
[2016-09-24] MEDS: POTASSIUM CHLORIDE 20 MEQ TABLET PO SCH ×2 (10:11→22:07)
[2016-09-24] MEDS: MULTIVITAMINS/MINERALS TABLET PO SCH (10:12)
[2016-09-24] MEDS: LOPERAMIDE 2 MG CAPSULE PO PRN ×2 (10:14→20:20)
[2016-09-24] MEDS: ONDANSETRON HCL IV 4 MG/2 ML VIAL IVP PRN ×3 (10:15→20:13)
[2016-09-24] MEDS ORDERED: 0.9 % SODIUM CHLORIDE 1000ML 1,000 ML IV PRN (10:20)
[2016-09-24] MEDS: MORPHINE SULFATE 30MG TABLET.ER PO PRN (20:23)
[2016-09-24] MEDS: MORPHINE SULFATE 15 MG TABLET PO PRN (22:23)
[2016-09-24] MEDS: POTASSIUM CHL 20MEQ IN 1L NS 20 MEQ in 0.9 % SODIUM CHLORIDE 1000ML 1 BAG IV ONE ×2 (22:47)
[2016-09-24] MEDS: PAROXETINE HCL 10 MG TABLET PO SCH (22:50)
[2016-09-24] MEDS: AL HYDROX/MAG HYDROX 30ML UD PO PRN (22:57)
[2016-09-24] MEDS: LORAZEPAM 0.5 MG TABLET PO PRN (23:11)
[2016-09-25] MEDS: HYDROMORPHONE HCL 1 MG/ML CPJ IVP PRN (00:21)
[2016-09-25] MEDS: ONDANSETRON HCL IV 4 MG/2 ML VIAL IVP PRN ×2 (00:21→20:18)
[2016-09-25 06:19] LABS: HEMATOCRIT 35.8 % (35.0-47.0); HEMOGLOBIN 12.1 gm/dl (11.6-16.0); MEAN CELL VOLUME 83.1 fl (81-97); MEAN CORPUSCULAR HEMOGLOBIN 28.1 pg (27-33); MEAN CORPUSCULAR HGB CONC 33.8 g/dl (32-36); MEAN PLATELET VOLUME 9.6 fl (7.4-10.4); PLATELET COUNT 211 K/uL (130-400); RED BLOOD COUNT 4.31 M/uL (3.80-5.40); RED CELL DISTRIBUTION WIDTH 15.5 % (11.5-14.5); WHITE BLOOD COUNT W/O DIFF 2.9 K/uL (4.2-12.2)
[2016-09-25] MEDS: PANTOPRAZOLE SODIUM 40 MG TABLET PO SCH (06:24)
[2016-09-25 06:26] LABS: ALBUMIN 2.7 gm/dL (3.5-5.0); BILIRUBIN,TOTAL 0.93 mg/dL (0.2-1.3); TOTAL PROTEIN 4.7 gm/dL (6.3-8.2)
[2016-09-25 06:28] LABS: ANION GAP 12.7 (7-16); BLOOD UREA NITROGEN 7 mg/dL (7-17); CARBON DIOXIDE 22.3 mmol/L (22-30); CREATININE 0.6 mg/dL (0.52-1.04); EST GLOMERULAR FILTRATION RATE > 60 ml/min; GLUCOSE,RANDOM 165 mg/dL (70-110)
[2016-09-25] MEDS: MORPHINE SULFATE 15 MG TABLET PO PRN ×2 (09:46→16:01)
[2016-09-25] MEDS: MULTIVITAMINS/MINERALS TABLET PO SCH (09:46)
[2016-09-25] MEDS: POTASSIUM CHLORIDE 20 MEQ TABLET PO SCH ×2 (09:46→22:07)
[2016-09-25] MEDS: ENOXAPARIN 40 MG/0.4 ML SYR SQ SCH (09:56)
[2016-09-25] MEDS: PSYLLIUM HUSK/ASPARTAME 3.4 GM POWD.PACK PO SCH ×2 (09:56→22:07)
[2016-09-25] MEDS: LOPERAMIDE 2 MG CAPSULE PO PRN (11:31)
[2016-09-25] MEDS: MORPHINE SULFATE 30MG TABLET.ER PO PRN (11:31)
[2016-09-25] MEDS: AL HYDROX/MAG HYDROX 30ML UD PO PRN (11:46)
[2016-09-25] MEDS ORDERED: POTASSIUM CHL 20MEQ IN 1L NS 20 MEQ in 0.9 % SODIUM CHLORIDE 1000ML 1 BAG IV ONE ×2 (15:08)
[2016-09-25] MEDS: POTASSIUM CHL 20MEQ IN 1L NS 20 MEQ in 0.9 % SODIUM CHLORIDE 1000ML 1 BAG IV ONE ×2 (16:01)
[2016-09-25] MEDS: PAROXETINE HCL 10 MG TABLET PO SCH (22:05)
[2016-09-26 06:59] LABS: ANION GAP 10.8 (7-16); BLOOD UREA NITROGEN 8 mg/dL (7-17); CARBON DIOXIDE 24.2 mmol/L (22-30); CREATININE 0.6 mg/dL (0.52-1.04); EST GLOMERULAR FILTRATION RATE > 60 ml/min; GLUCOSE,RANDOM 140 mg/dL (70-110)
[2016-09-26] MEDS: ONDANSETRON HCL IV 4 MG/2 ML VIAL IVP PRN ×2 (08:28→14:50)
[2016-09-26] MEDS: PANTOPRAZOLE SODIUM 40 MG TABLET PO SCH (08:31)
[2016-09-26] MEDS ORDERED: HYDROMORPHONE HCL 1 MG/ML CPJ IVP ONE (10:15)
[2016-09-26] MEDS: MULTIVITAMINS/MINERALS TABLET PO SCH (10:23)
[2016-09-26] MEDS: POTASSIUM CHLORIDE 20 MEQ TABLET PO SCH ×2 (10:23→21:52)
[2016-09-26] MEDS: PSYLLIUM HUSK/ASPARTAME 3.4 GM POWD.PACK PO SCH ×2 (10:25→21:52)
[2016-09-26] MEDS: ENOXAPARIN 40 MG/0.4 ML SYR SQ SCH (10:27)
[2016-09-26] MEDS: LORAZEPAM 0.5 MG TABLET PO PRN ×2 (10:32→17:59)
[2016-09-26] MEDS: POTASSIUM CHL 20MEQ IN 1L NS 20 MEQ in 0.9 % SODIUM CHLORIDE 1000ML 1 BAG IV ONE ×2 (11:21)
[2016-09-26] MEDS: MORPHINE SULFATE 30MG TABLET.ER PO PRN (12:08)
--- NOTE | 2016-09-26 12:15 | Discharge Summary ---
DATE OF DISCHARGE: 09/26/16 DISCHARGE DIAGNOSIS: 1. ADENOCARCINOMA OF THE COLON AND APPENDIX. 2. 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 3. DIARRHEA SECONDARY TO CHEMOTHERAPY WHICH IS RESOLVING. 4. ABDOMINAL PAIN SECONDARY TO COLON CANCER METASTASIS. 5. RIGHT COLECTOMY ON 02/29/16 WITH THE INITIAL DIAGNOSIS OF TUMOR IN THE CECUM AND APPENDIX AREA WITH ONE OF SEVEN LYMPH NODES POSITIVE. THE STAGING OF THIS BY DR. HUI THE ONCOLOGIST WAS [id number]. 6. COPD. 7. HISTORY OF ATRIAL FIBRILLATION. 8. RADICULOPATHY OF THE RIGHT LEG WITH LOW BACK PAIN. 9. HISTORY OF HYPERTENSION. 10. HISTORY OF GERD. 11. HISTORY OF PEPTIC ULCER DISEASE. 12. HISTORY OF OSTEOARTHRITIS. 13. HISTORY OF CELIAC DISEASE. 14. CHRONIC PAIN ON NARCOTICS BECAUSE OF THE ABOVE, MOSTLY THE BACK PAIN, RIGHT LEG RADICULOPATHY AND ALSO NOW THE COLON CANCER WITH METASTASIS. 15. DO NOT RESUSCITATE. 16. PATIENT REQUESTING HOSPICE CARE OR PALLIATIVE CARE. 17. HYPOKALEMIA, POTASSIUM ON DISCHARGE WAS 3.1. PATIENT IS REFUSING TO TAKE ANY ORAL POTASSIUM. SHE IS WILLING TO EAT BANANAS. 18. HYPOCALCEMIA, AGAIN REFUSING THE LARGE PILLS. SHE HAS DIFFICULTY SWALLOWING PILLS. RECOMMENDING EATING THINGS WITH CALCIUM IN THEM LIKE MILK AND YOGURT TO BRING HER CALCIUM BACK UP. HER LAST CALCIUM WAS 7.8. REASON FOR HOSPITALIZATION: The main reason for hospitalization was diarrhea secondary to chemotherapy. This 76-year-old female returned to the Emergency Department stating she had extensive diarrhea about twenty times in the twenty- four hours prior to coming into the Emergency Room. Her nausea and vomiting slowed down and she was no longer vomiting, but the excessive diarrhea was making her weak. She discussed her situation with oncology and they recommended coming back to the Emergency Department for hydration and admission. She was evaluated in the Emergency Department by myself and admitted for dehydration, chemotherapy induced diarrhea and a history of appendix and colon adenocarcinoma with metastasis to the lungs. SIGNIFICANT FINDINGS FROM EXAMINATION: Laboratory - The Clostridium difficile was negative. She had a white count initially of 3,700, it dropped down to 2, 900 on 09/25/16, her hemoglobin on 09/25/16 was 12.1. Her neutrophils were 63, lymphs were 10, bands were 4. Her electrolytes on discharge: Sodium was 137, potassium was 3.1, chloride was 102, CO2 was 24, anion gap of 10, BUN of 8, creatinine of 0.6. Her sugar is running about 140. Her calcium was 7.8. EKG done on 09/20/16 was in a sinus rhythm. She has a history of intermittent atrial fib, but she is currently in a sinus rhythm showing no acute ST,T-wave changes. Phone consultation with Dr. Hui and she sent me her office chart which revealed the staging of her cancer and the details of some of the metastasis of the cancer. Her initial surgery was done on 02/29/16 showing a tumor in the cecum of the colon and appendix. At that time there was no peritoneal studying and the pathology revealed a well to moderately differentially focal, cystic and mucinous adenocarcinoma and the margins were negative at that time. There was one of seven lymph nodes positive that penetrated the appendiceal wall extending to the serosa so this made it a [id number] and the N1c was based on tumor deposited in the subserosa. Then she had a PET scan which revealed metastasis to the lung which had a cycle of radiation therapy and then she had two separate therapies of chemotherapy and tolerated both of them poorly. At that point she said no more chemotherapy, no more cancer treatment and basically no more large pills. HOSPITAL COURSE: At this hospital for the diarrhea, it took about two days to three days to settle the diarrhea down requiring Imodium and Metamucil, but she refused to take the Metamucil and the diarrhea slowed down. She is eating somewhat, but has no appetite and she has continued to take her chronic pain narcotics for both the abdominal pain which is most likely from the metastasis of the colon cancer and her chronic back pain more in the right lumbar spine and radiation into the right leg. CONDITION AT DISCHARGE: Stable, but guarded because of her comorbid conditions. DISCHARGE INSTRUCTIONS: The patient is refusing to go home with Hospice, she would like to go into a alf Hospice program or a palliative care program. Social Service is working on that at this time. Discharge medications : She is to use MSIR 15 mg every four hours prn for breakthrough pain, Ativan 0.5 mg q eight hours prn anxiety, Morphine sulfate extended release 30 mg b.i.d. on a scheduled basis, Paxil 40 mg q daily, Flexeril 10 mg t.i.d., Omeprazole 20 mg q daily, Centrum multiple vitamins with iron and folic acid once a day, Imodium 2 mg prn q four hours occasionally needs it, Zofran 4 mg orally q four hours prn, she is refusing to take potassium pills, Maalox 15 ml every four hours prn nausea, and DuoNeb treatments q four hours prn - she has not required those treatments here at this hospitalization. The patient is to follow-up if she leaves the alf with Dr. Hernandez, her primary care physician. Naga Gutierrez D.O. Date & Time JOB NUMBER: [id number] MTDD
[2016-09-26] MEDS ORDERED: POTASSIUM CHL 20MEQ IN 1L NS 20 MEQ in 0.9 % SODIUM CHLORIDE 1000ML 1 BAG IV SCH ×2 (13:00)
[2016-09-26] MEDS: AL HYDROX/MAG HYDROX 30ML UD PO PRN (17:18)
[2016-09-26] MEDS: MORPHINE SULFATE 15 MG TABLET PO PRN (17:45)
[2016-09-26] MEDS: PAROXETINE HCL 10 MG TABLET PO SCH (21:52)
[2016-09-27] MEDS: ONDANSETRON HCL IV 4 MG/2 ML VIAL IVP PRN ×2 (00:31→06:05)
[2016-09-27] MEDS: PANTOPRAZOLE SODIUM 40 MG TABLET PO SCH (06:05)
--- NOTE | 2016-09-27 09:52 | Rehab Evaluation ---
Patient Information - Patient Information Diagnosis: Dehydration, diarrhea, and adverse reaction to chemotherapy Ordered Treatment: PT Evaluate and Treat Status: Initial Evaluation Surgery: No History: Detail (Patient was admitted to the inpatient floor on 09/22/16 due to complaints of severe nausea, vomiting and diarrhea attributed to chemotherapy. Has decided to discontinue chemotherapy after adverse side effects from 4 treatments.) Past Medical/Surgical Hx: PAST MEDICAL/SURGICAL HISTORY Past Surgical History LEFT KNEE REPLACEMENT CHOLECYSTECTOMY 2010 HYSTERECTOMY D & C x3 HEMORROIDECTOMY/FISSURE REPAIR infusaport Colon resection Appendectomy PMH - Respiratory Hx Respiratory Disorders Yes Hx Asthma Yes Hx Chronic Obstructive Yes Pulmonary Disease (COPD) Hx Dyspnea Yes Hx Pneumonia Yes: 1989 PMH - Cardiovascular Hx Cardiovascular Disorders Yes Hx Hypertension Yes Comment: Enlarged heart PMH - Neuro Hx Neurological Disorders Yes Hx Headaches Yes PMH - GI Hx Gastrointestinal Disorders Yes Hx Celiac Disease Yes Hx Gastroesophageal Reflux Yes Hx Irritable Bowel Yes Hx Ulcer Yes PMH - Hx Genitourinary Disorders No PMH - Endocrine Hx Endocrine Disorders No PMH - Musculoskeletal Hx Musculoskeletal Disorders Yes Hx Arthritis Yes: OSTEOARTHRITIS Comment: RLS PMH - Psych Hx Psychiatric Problems Yes Hx Anxiety Yes Hx Depression Yes PMH - Hematology/Oncology Hx Hematology/Oncology Yes Disorders Hx Cancer Yes: appendix, colon, lung, lymph nodes Hx Chemotherapy Yes Hx Radiation Therapy Yes Comment: last chemo was on Friday Premorbid Status: Detail (Patient reports she was independent for all ADLs and IADLs prior to admission. Reports she had no difficulty completing daily tasks prior to experiencing adverse effects from chemotherapy.) Social History: Detail (Patient reports living in an apartment on the main floor ; there are no steps to enter the building. Patient does not require an assistive device to ambulate. Reports she has grab bars near her tub. No other durable medical equipment mentioned. Family is said not to be in the picture, but they live close. Patient verbalized that she has friends that are there for her.) Precautions: [place] - Time With Patient Total Time Spent With Patient (Min): 15 (Patient was unable to fully participate in PT evaluation due to severe nausea. Plan to assess bed mobility in the evening.) Treatment Procedures: Detail (PT evaluation completed with OT evaluation) Subjective Information - Subjective Information Per Patient Objective Data - Pain Pain Present: Yes Pain Intensity: 9 (Pain rating relates to her stomach) - Mental Status Patient Orientation: Oriented x3 - Visual Perception Appears within normal limits for therapeutic activities - ROM Within normal limits (AROM was assessed with patient in supine due to complaints of severe nausea/vomiting and intolerance to movement. B hip flexion , knee flexion/extension, and ankle DF/PF AROM WFL based on observation when assuming MMT positions.) - Strength/Tone Within normal limits (Manual muscle testing was completed in supine due to patient's intolerance to movement and associated nausea/vomiting. Hip abduction was tested in a gravity reduced position as a result. B hip abduction measured R 4/5 and L 3+/5 in supine position. R LE MMT measured 4/5 and L LE MMT measured 4+/5 for knee flexion and extension and ankle DF/PF.) - Coordination Appears within normal limits for therapeutic activities - Bed Mobility Independent (The patient was independent with supine to and from sit transfer and rolling and scooting up in bed.) - Transfers Independent (The patient was independent with sit to and from stand transfer. Per nursing report the patient requires SBA with toilet transfers.) - Balance Balance Sitting: Good Balance Standing: Good (Able to stand with adequate balance without any assistive device or need for personal assistance. Reported slight dizziness and lightheadedness in standing. No LOB or sway observed.) - Sensation Intact (LE sensation is intact to light touch.) - Gait Detail (.The patient refused ambulation due to nausea and lightheadness however per nurses report the patient is ambulating without device distances of 13 feet with supervision for safety only.) - Special Tests No Therapy Assessment - Therapy Assessment Detail (The patient has increased ability to complete sustained physical activity, decreased LE stregth and supervision with all mobility due to weakness. The patient is currently not at her previous functional level. Subacute Rehab is recommended to return the patient to previous functional level , so she is able to live without assistance.) Problem List - Problem List Physical Therapy Problem List: Detail (1) Decreased LE strength 2) Supervision with ambulation and transfers for safety 3) Decreased ability to complete sustained physical activity) Goals - Goals Physical Therapy Goals: 1) The patient will tolerate 30 minutes of physical activity. 2) The patient will be independent with ambulation distances of 100 feet plus. 3) Increase LE strength 1/3 muscle grade. 4) The patient will be independent with all transfers. Prognosis - Prognosis Moderate Plan - Plan Physical Therapy Plan: PT M-F once daily until discharge from [facility] for LE strengthening exercises and mobility. Subacute Rehab is recommended.
[2016-09-27] MEDS: POTASSIUM CHLORIDE 20 MEQ TABLET PO SCH ×2 (10:03→23:03)
[2016-09-27] MEDS: MORPHINE SULFATE 15 MG TABLET PO PRN (10:11)
[2016-09-27] MEDS: PSYLLIUM HUSK/ASPARTAME 3.4 GM POWD.PACK PO SCH ×2 (10:12→23:04)
[2016-09-27] MEDS: ENOXAPARIN 40 MG/0.4 ML SYR SQ SCH (10:12)
[2016-09-27] MEDS: MULTIVITAMINS/MINERALS TABLET PO SCH (10:13)
--- NOTE | 2016-09-27 12:09 | Rehab Evaluation ---
Patient Information - Patient Information Diagnosis: Dehydration, diarrhea, and adverse reaction to chemotherapy Ordered Treatment: OT Evaluate and Treat Status: Initial Evaluation Surgery: No History: Detail (Patient was admitted to the inpatient floor on 09/22/16 due to complaints of severe nausea, vomiting and diarrhea attributed to chemotherapy. Has decided to discontinue chemotherapy after adverse side effects from 4 treatments.) Past Medical/Surgical Hx: PAST MEDICAL/SURGICAL HISTORY Past Surgical History LEFT KNEE REPLACEMENT CHOLECYSTECTOMY 2010 HYSTERECTOMY D & C x3 HEMORROIDECTOMY/FISSURE REPAIR infusaport Colon resection Appendectomy PMH - Respiratory Hx Respiratory Disorders Yes Hx Asthma Yes Hx Chronic Obstructive Yes Pulmonary Disease (COPD) Hx Dyspnea Yes Hx Pneumonia Yes: 1989 PMH - Cardiovascular Hx Cardiovascular Disorders Yes Hx Hypertension Yes Comment: Enlarged heart PMH - Neuro Hx Neurological Disorders Yes Hx Headaches Yes PMH - GI Hx Gastrointestinal Disorders Yes Hx Celiac Disease Yes Hx Gastroesophageal Reflux Yes Hx Irritable Bowel Yes Hx Ulcer Yes PMH - Hx Genitourinary Disorders No PMH - Endocrine Hx Endocrine Disorders No PMH - Musculoskeletal Hx Musculoskeletal Disorders Yes Hx Arthritis Yes: OSTEOARTHRITIS Comment: RLS PMH - Psych Hx Psychiatric Problems Yes Hx Anxiety Yes Hx Depression Yes PMH - Hematology/Oncology Hx Hematology/Oncology Yes Disorders Hx Cancer Yes: appendix, colon, lung, lymph nodes Hx Chemotherapy Yes Hx Radiation Therapy Yes Comment: last chemo was on Friday Premorbid Status: Detail (Patient reports she was independent for all ADLs and IADLs prior to admission. Reports she had no difficulty completing daily tasks prior to experiencing adverse effects from chemotherapy.) Social History: Detail (Patient reports living in an apartment on the main floor ; there are no steps to enter the building. Patient was ambulating w/o device [employer]IST. Patient has a tub/shower combo w/ curtain enclosure and grab bars. No other durable medical equipment mentioned. Patient is estranged from family. She has friends that live close by she could call on for assistance if needed.) Precautions: [place], [place] - Time With Patient Total Time Spent With Patient (Min): 25 Subjective Information - Subjective Information Per Patient (Patient c/o extreme nausea but willing to participation in evaluation. Required rest break 1x during eval due to nausea.) Objective Data - Mental Status Patient Orientation: Oriented x3 - Visual Perception Appears within normal limits for therapeutic activities - ROM Not within normal limits (Patient ROM is WFL to complete ADLs but she shows some impairments in B shld flex & internal/external rotation.) - Strength/Tone Not within normal limits (BUE's grossly 3+ to 4/5. Pt's feeling of increased nausea may have affecting MMT testing.) - Coordination Appears within normal limits for therapeutic activities - Bed Mobility Independent (Pt did not want to attempt sitting up in bed or sitting EOB due to not feeling well.) - Sensation Deficit (Pt c/o Otilio paresthesia in volar digits.) - ADL's/IADL's Detail (Pt reports she has been asking nsg for assistance due to not feeling well and increased weakness. Upon consulting with nsg, therapist was informed that when patient is feeling less nauseated, she is able to ambulate w/ walker to use toilet.) Therapy Assessment - Therapy Assessment Detail (Pt would be a good canidate for further rehab to address Otilio UE weakness and decreased ind. w/ ADLs. Patient's increased nausea is affecting her ability to participate in therapy tasks.) Problem List - Problem List Physical Therapy Problem List: Detail Occupational Therapy Problem List: Detail (1. Otilio UE weakness 2. Decreased Otilio. UE ROM 3. Weakness Otilio gross grasp 4. Nausea affecting patient's engagement in functional tasks 5. Decreased ind. w/ ADLs) Goals - Goals Occupational Therapy Goals: 1. Increase MMT Toilio shld flex to 4/5. 2. Pt to be ind. to amb functional household distances using AD if needed. 3. Ind w/ UB drsg. 4. Ind w/ bed mobility Prognosis - Prognosis Moderate Plan - Plan Occupational Therapy Plan: Continue to address weakness in Otilio UE's and decreased ind. w/ ADLs while patient remains at [facility] 2-4x a week M-F. Pt to continue w/ rehab at SNF.
[2016-09-27] MEDS ORDERED: PROMETHAZINE HCL 25 MG TABLET PO ONE (13:47)
[2016-09-27] MEDS: AL HYDROX/MAG HYDROX 30ML UD PO PRN (13:51)
[2016-09-27] MEDS ORDERED: ONDANSETRON 4 MG ODT TABLET SL PRN (13:53)
[2016-09-27 14:50] LABS: ANION GAP 12.7 (7-16); BLOOD UREA NITROGEN 9 mg/dL (7-17); CARBON DIOXIDE 22.3 mmol/L (22-30); CREATININE 0.6 mg/dL (0.52-1.04); EST GLOMERULAR FILTRATION RATE > 60 ml/min; GLUCOSE,RANDOM 140 mg/dL (70-110)
[2016-09-27 15:25] LABS: ALBUMIN 2.5 gm/dL (3.5-5.0)
[2016-09-27] MEDS: LISINOPRIL 20 MG TABLET PO SCH (16:45)
[2016-09-27] MEDS: MORPHINE SULFATE 30MG TABLET.ER PO PRN (16:45)
[2016-09-27] MEDS: PAROXETINE HCL 10 MG TABLET PO SCH (22:59)
[2016-09-27] MEDS: AL HYDROX/MAG HYDROX 30ML UD PO SCH (23:03)
[2016-09-28] MEDS: AL HYDROX/MAG HYDROX 30ML UD PO SCH ×2 (03:09→07:52)
[2016-09-28] MEDS: MORPHINE SULFATE 15 MG TABLET PO PRN (05:57)
[2016-09-28] MEDS: LORAZEPAM 0.5 MG TABLET PO PRN (06:03)
[2016-09-28] MEDS: PANTOPRAZOLE SODIUM 40 MG TABLET PO SCH (06:39)
[2016-09-28] MEDS: MORPHINE SULFATE 30MG TABLET.ER PO PRN (09:34)
[2016-09-28] MEDS: MULTIVITAMINS/MINERALS TABLET PO SCH (09:34)
[2016-09-28] MEDS: POTASSIUM CHLORIDE 20 MEQ TABLET PO SCH (09:35)
[2016-09-28] MEDS: PSYLLIUM HUSK/ASPARTAME 3.4 GM POWD.PACK PO SCH (09:35)
[2016-09-28] MEDS: ENOXAPARIN 40 MG/0.4 ML SYR SQ SCH (09:35)
[2016-09-28] MEDS: LISINOPRIL 20 MG TABLET PO SCH (09:37)
--- NOTE | 2016-09-28 09:52 | Discharge Note ---
Discharge Note - Date Date of Discharge Note: 09/28/16 Condition: (1) Good Additional Instructions: follow up with Dr. Hernandez in 3-4 weeks Take zofran 4 mg before meals and after meals take maalox 30 ml to help with nausea. patient should eat two banana's a day to bring up her potassium she will not take potassium pills. Patient has difficulty swallowing pills. start clonidine TTS1 one patch a week and a patch applied today 09/28/16 Prescriptions: Paroxetine HCl [Paxil] 40 mg PO QHS #30 tablet Ondansetron [Zofran Odt] 4 mg SL Q4HR PRN #60 tab.rapdis PRN Reason: Nausea/Vomiting Lorazepam [Ativan] 1 mg PO Q8HR #180 tablet Clonidine Tts-1 [Catapres] 1 each TD Q7D #4 patch Ipratropium/Albuterol [Duoneb] 3 ml INH Q8H PRN #90 ampul.neb PRN Reason: Difficulty In Breathing Cyclobenzaprine HCl [Flexeril] 10 mg PO TID PRN #90 tablet PRN Reason: Muscle Spasms Magnesium Hydroxide/Al Hydrox [Maalox] 30 ml PO WMEALS #360 oral.susp Morphine Sulfate 30 mg PO Q12H PRN #60 tablet.er PRN Reason: Restlessness Morphine Sulfate [Msir] 15 mg PO Q4H PRN #120 tablet PRN Reason: Pain - Moderate (5-7) Referrals: Lavelle Hernandez M.D., F.A.C.P. [Primary Care Provider] - Forms: Patient Portal Access
[2016-09-28] MEDS ORDERED: HYDROCHLOROTHIAZIDE 25 MG TABLET PO ONE (09:54)
[2016-09-28] MEDS ORDERED: CLONIDINE HCL 0.1 MG TABLET PO ONE (09:54)
[2016-09-28] MEDS ORDERED: CLONIDINE TTS-0.1MG PATCH TD SCH (10:00)
--- NOTE | 2016-09-28 10:39 | Discharge Note ---
Discharge Note - Date Date of Discharge Note: 09/28/16 Condition: (1) Good Additional Instructions: follow up with Dr. Hernandez in 3-4 weeks Take zofran 4 mg before meals and after meals take maalox 30 ml to help with nausea. patient should eat two banana's a day to bring up her potassium she will not take potassium pills. Patient has difficulty swallowing pills. start clonidine TTS1 one patch a week and a patch applied today 09/28/16 Prescriptions: Paroxetine HCl [Paxil] 40 mg PO QHS #30 tablet Ondansetron [Zofran Odt] 4 mg SL Q4HR PRN #60 tab.rapdis PRN Reason: Nausea/Vomiting Lorazepam [Ativan] 1 mg PO Q8HR #180 tablet Clonidine Tts-1 [Catapres] 1 each TD Q7D #4 patch Ipratropium/Albuterol [Duoneb] 3 ml INH Q8H PRN #90 ampul.neb PRN Reason: Difficulty In Breathing Cyclobenzaprine HCl [Flexeril] 10 mg PO TID PRN #90 tablet PRN Reason: Muscle Spasms Lisinopril 20 mg PO DAILY #30 tab Magnesium Hydroxide/Al Hydrox [Maalox] 30 ml PO WMEALS #360 oral.susp Morphine Sulfate 30 mg PO Q12H PRN #60 tablet.er PRN Reason: Restlessness Morphine Sulfate [Msir] 15 mg PO Q4H PRN #120 tablet PRN Reason: Pain - Moderate (5-7) Referrals: Lavelle Hernandez M.D., F.A.C.P. [Primary Care Provider] - Forms: Patient Portal Access
--- NOTE | 2016-09-30 08:39 | RADIOLOGY REPORT ---
EXAM: AP CHEST HISTORY: PLACEMENT. TECHNIQUE: AP view of the chest was obtained. Comparison: Chest x-ray 10/22/07. FINDINGS: Left chest port is in place with catheter tip projecting over the proximal SVC. No pneumothorax. Fine linear scarring right mid lung. The lungs are clear. The cardiomediastinal silhouette, diaphragm and osseous structures are unremarkable. IMPRESSION: FINE LINEAR SCARRING RIGHT MID LUNG. NO ACUTE PROCESS. JOB NUMBER: [id number] MTDD
== END 2016-09-28 11:35 | DRG 394 ==
LOC: ER 09:15 → MEDSURG 14:46
PROVIDERS: ADMIT Emergency Medicine; ATTEND Emergency Medicine
DX: K52.1 Toxic gastroenteritis and colitis (principal); C18.9 Malignant neoplasm of colon, unspecified; C18.1 Malignant neoplasm of appendix; C78.02 Secondary malignant neoplasm of left lung; C78.01 Secondary malignant neoplasm of right lung; T45.1X5A Adverse effect of antineoplastic and immunosuppressive drugs, initial encounter; E86.0 Dehydration; J44.9 Chronic obstructive pulmonary disease, unspecified; I48.2 Chronic atrial fibrillation; I10 Essential (primary) hypertension; G89.3 Neoplasm related pain (acute) (chronic); E87.6 Hypokalemia; E83.51 Hypocalcemia; R53.1 Weakness
CPT/HCPCS: 99285 ×2; 96374; 96375; 96361; 85025; 80076; 80048; J1170; 71010; 82040; 83690; 83735; 85027; 87427; 87493; 94640; 97162; 97166; 99223; J1650; J2405; J2550; J7030; Q0170